=== PATIENT | female | born 1975 | race Two or more races ===

== ENCOUNTER 2016-09-11 16:22 | Emergency (ER) | payer OTHER ==
--- NOTE | ~2016-09-11 | MR18 ---
[facility] A Service of [facility] & [facility] RADIOLOGY TEXT RESULTS PATIENT: BORIS ERICKSON LOCATION: DAVE : 71 UNIT #: [id number] AGE: [address]: Benji Mercedes DO SEX: F ORDER DR: [id number] [facility] [address] [place] [address] [place], [place] [address] [id number] E MR#: [id number] Acc #: [id number] NAME: BORIS ERICKSON : 1975 SEX: F STUDY DATE/TIME: 09/11/2016 16:47 UNIT: DAVE ROOM: STUDY DESCRIPTION: MR Brain Wo Contrast Attending Physician: Benji Mercedes D.O. Ordering Physician: Benji Mercedes D.O. Primary Care Physician: [facility], MRI CENTER REPORT This report is preliminary unless electronic signature is present. EXAM MRI of the brain without contrast HISTORY 40-year-old female with dizziness times 4 days. States ate oysters and has felt ill since. FINDINGS Multiplanar multiecho imaging was performed of the brain to include axial diffusion weighted images. Brain parenchyma appears normal. No evidence of mass, mass effect or midline shift. No hemorrhage or abnormal extraaxial fluid collections. Ventricles, sulci and basilar cisterns appear normal. Normal intracranial flow voids. Bony calvaria skull base mastoids and sinuses appear normal. No areas of restricted diffusion. IMPRESSION Normal MRI of the brain without contrast. Dictated by... Elliott Winn M.D. THIS IS AN ELECTRONICALLY VERIFIED REPORT Elliott Winn M.D. at 09/12/2016 2:02 PM VENKATA/jose TD: 09/11/2016 20:07 JOB #: [id number] MRI CENTER REPORT Page 1 of 1 COPY
--- NOTE | ~2016-09-11 | EKG ---
PATIENT: DINO MATA BORIS UNIT #: [id number] Ventricular Rate: 81 BPM Atrial Rate: 81 BPM P-R Interval: 114 ms QRS Duration: 74 ms Q-T Interval: 366 ms QTC Calculation(Bezet): 425 ms P Rosston: 3 degrees Calculated R [place]: 52 degrees Calculated T [place]: -2 degrees Diagnosis Line: Normal sinus rhythm Diagnosis Line: Cannot rule out Inferior infarct , age Diagnosis Line: undetermined Diagnosis Line: Abnormal ECG Diagnosis Line: Diagnosis Line: Confirmed by ZOIE CRESPO MD ([id number]) on 09/12/2016 Diagnosis Line: 8:01:57 PM INTERPRETING MD: CHERIE HEREDIA
--- NOTE | ~2016-09-11 | CR72 ---
[facility] A Service of [facility] & [facility] RADIOLOGY TEXT RESULTS PATIENT: BORIS ERICKSON LOCATION: [facility] : 71 UNIT #: [id number] AGE: [address]: Benji Mercedes DO SEX: F ORDER DR: [id number] [facility] [address] [place], [place] [address] [id number] E MR#: [id number] Acc #: [id number] NAME: BORIS ERICKSON : 1975 SEX: F STUDY DATE/TIME: 09/11/2016 16:24 UNIT: [facility] ROOM: STUDY DESCRIPTION: CR Chest Single View Portable Attending Physician: Benji Mercedes D.O. Ordering Physician: Benji Mercedes D.O. [facility] REPORT This report is preliminary unless electronic signature is present EXAM Portable chest 1-view date of study 09/11/2016 COMPARISON None. CLINICAL HISTORY Pain and dizziness for 4 days FINDINGS A single AP portable view of the chest shows both lungs to be clear. The heart is normal in size. The mediastinal contour is normal. No significant bone abnormalities are seen. IMPRESSION Normal portable chest. Dictated by... Otto Ott M.D. THIS IS AN ELECTRONICALLY VERIFIED REPORT Otto Ott M.D. at 09/15/2016 11:22 AM AMELIE/jose TD: 09/11/2016 18:10 JOB #: [id number] MEDICAL IMAGING REPORT Page 1 of 1 COPY
[2016-09-11 16:24] LABS: POC - CKMB 1.4 ng/mL (0.0-7.9); POC - TROPONIN <0.05 ng/mL (<=0.05)
[2016-09-11 16:24] LABS: BASOPHIL# 0.1 X10e3 (0-0.3); BASOPHIL% 1.1 % (0-2.5); EOSINOPHIL# 0.5 X10e3 (0-0.7); EOSINOPHIL% 4.3 % (0.0-7.0); HEMATOCRIT 41.7 % (35.0-45.0); HEMOGLOBIN 13.7 gm/dL (12.0-16.0); LYMPHOCYTE# 3.8 X10e3 (1.0-3.5); LYMPHOCYTE% 35.6 % (17.0-45.0); MEAN CELL VOLUME 92.9 FL (83-96); MEAN CORPUSCULAR HEMOGLOBIN 30.6 PG (28-34); MEAN CORPUSCULAR HGB CONC 32.9 g/dL (30-36); MEAN PLATELET VOLUME 10.9 FL (6.5-11.5); MONOCYTE# 0.6 X10e3 (0-1.0); MONOCYTE% 5.6 % (3.0-12.0); NEUTROPHIL# 5.7 X10e3 (1.5-7.1); NEUTROPHIL% 53.4 % (40-75); PLATELET COUNT 220 X10e3 (140-420); RED BLOOD COUNT 4.49 X10e (3.90-5.30); RED CELL DISTRIBUTION WIDTH 13.9 % (11.0-15.5); WHITE BLOOD COUNT 10.6 X10e3 (4.0-10.5)
[2016-09-11 16:36] LABS: DIFF IND NO
[2016-09-11 16:39] LABS: URINE SOURCE CLEAN CATCH
[2016-09-11 16:49] LABS: URINE APPEARANCE CLEAR; URINE BILIRUBIN NEG (NEG); URINE BLOOD NEG (NEG); URINE COLOR YELLOW; URINE GLUCOSE NEG (NEG); URINE KETONE NEG (NEG); URINE LEUKOCYTE ESTERASE NEG (NEG); URINE NITRATE NEG (NEG); URINE PH 6.5 (5-8); URINE PROTEIN NEG (NEG); URINE SPECIFIC GRAVITY 1.009 (1.003-1.035); URINE UROBILINOGEN 0.2 MG/DL (NEG)
[2016-09-11 16:51] LABS: ALBUMIN SERUM 3.9 g/dL (3.5-5.0); BILIRUBIN, DIRECT 0.2 mg/dL (0.0-0.2); BILIRUBIN,INDIRECT 0.7 mg/dL (0.0-0.9); BILIRUBIN,TOTAL 0.9 mg/dL (0.2-2.0); CALCIUM SERUM 8.9 mg/dL (8.4-10.2); CREATININE SERUM 0.5 mg/dL (0.6-1.4); GLOM FILT RATE Estimated 119.4 mL/min (>60); POTASSIUM 4.4 mmol/L (3.5-5.1); PROTEIN TOTAL SERUM 7.8 g/dL (6.0-8.3)
[2016-09-11 17:03] LABS: CULTURE INDICATED? NO
== END 2016-09-11 20:25 | disposition left against medical advice (07) ==
LOC: CED 16:22
PROVIDERS: Emergency Medicine
DX: R42 Dizziness and giddiness (principal)
CPT/HCPCS: 36415; 70551; 71010; 80048; 80076; 81003; 82553; 82947; 84484; 84703; 85025; 93005; 96360; 99284